=== PATIENT | male | born 1975 | race Caucasian/White ===

== ENCOUNTER → 2017-07-18 | Outpatient (CLI) | payer OTHER | LOC: M.CT 08:00 | DX: R31.9 Hematuria, unspecified (principal); R10.30 Lower abdominal pain, unspecified; R39.11 Hesitancy of micturition ==

== ENCOUNTER → 2018-04-09 | Outpatient (CLI) | payer OTHER | LOC: M.ULTRA 08:45 | DX: R74.8 Abnormal levels of other serum enzymes (principal) ==